=== PATIENT | female | born 1960 | race Caucasian/White ===

== ENCOUNTER 2022-07-31 14:22 | Outpatient (CLI) | payer OTHER, SELFPAY ==
--- NOTE | 2022-07-31 14:30 | MR_ITS ---
[address] [address] Phone:?[phone] Fax:?[phone] Referring Physician Information: Mariel Mendez [address] [facility] [address] Phone:?[phone] Fax:?[phone] Patient:?Alyssa Nunez D.O.B:?1960 Sex:?Female Phone:?[phone] [facility] MRN:?[id number] Exam Date:?07/31/2022 ? EXAM: MRI of the RIGHT SHOULDER, without contrast CLINICAL: Right shoulder pain. Evaluate rotator cuff. COMPARISONS: None available. TECHNICAL: MRI sequences of the right shoulder: Axials: PD, PDFS Coronals: PD, T2FS Sagittals: PDFS, T2 SEDATION: None. CONTRAST: None. FINDINGS: Rotator cuff: Supraspinatus/Infraspinatus: There is full-thickness tearing of the the distal supraspinatus tendon measuring approximately 1.7 cm in AP dimension with retraction of torn tendon fibers by approximately 1.9 cm as seen on coronal series 4 images 11-14. Mild tendinosis of the distal infraspinatus tendon. No significant fatty atrophy of the muscle bellies. Teres minor: No tendinosis, tear or atrophy. Subscapularis: Moderate tendinosis of the distal tendon without significant tendon tear. No significant fatty atrophy of the muscle belly. Bursae: Subacromial-subdeltoid: Increased fluid within the bursa likely secondary to full-thickness rotator cuff tendon tear. Subcoracoid: Prominent increased bursal fluid. Coracoacromial arch: Acromion morphology: Type II with subacromial spurring. No os acromiale. Acromiohumeral space: Mildly narrowed. Coracohumeral space: Within normal limits. Biceps tendon, long head: Mild tendinosis of the intra-articular tendon. No significant tendon tear or displacement. Mild fluid about the imaged proximal extra-articular tendon. Glenohumeral joint: Small joint effusion with mild synovitis. Articular cartilage: No significant chondral loss. Capsule: No convincing evidence of capsular thickening or injury. Labrum: There is attenuation/degenerative tearing involving the posterior superior labrum. Remainder of the glenoid labrum appears intact. No perilabral cyst identified. Bones: No suspicious marrow signal alteration, fracture or dislocation. Acromioclavicular joint: Moderate changes of arthrosis. No AC joint injury/widening. IMPRESSION: 1. Full-thickness tearing of the distal supraspinatus tendon with retraction of torn tendon fibers by approximately 1.9 cm. 2. Moderate subscapularis tendinosis with mild infraspinatus tendinosis 3. Subacromial spurring with mild narrowing of the acromiohumeral space. 4. Mild tendinosis of the intra-articular long head biceps tendon. 5. Attenuation/degenerative tearing involving the posterior superior labrum. 6. Moderate AC arthrosis. JCZ Electronically signed on 08/01/2022 8:07:00 AM by Alvin Easley D.O.
== END 2022-07-31 14:23 | disposition home or self-care (01) ==
LOC: MRI 14:22
PROVIDERS: PCP Family Medicine; Visit Provider Physician Assistant Surgical
DX: M25.511 Pain in right shoulder (principal); M75.101 Unspecified rotator cuff tear or rupture of right shoulder, not specified as traumatic; S43.491A Other sprain of right shoulder joint, initial encounter; M19.011 Primary osteoarthritis, right shoulder
CPT/HCPCS: 73221

== ENCOUNTER 2022-09-03 07:57 | Day surgery (SDC) | payer OTHER, SELFPAY ==
[2022-09-03] VITALS (13 sets, daily range): BP systolic 80–127; BP diastolic 49–78; PULSE 44–68; RESP 14–16; TEMP 36.1–36.6; O2SAT 94–99
[2022-09-03] MEDS: LACTATED RINGERS 1000 ML 1,000 ML 100 ML IV ×6 (08:30→13:11)
[2022-09-03] MEDS: SODIUM CHLORIDE 0.9 % (FLUSH) 10 ML SYRINGE IVF (08:36)
[2022-09-03] MEDS: MIDAZOLAM HCL 1 MG/ML inj IVP (10:22)
[2022-09-03] MEDS: fentaNYL 100 MCG/2 ML inj IVP (10:22)
--- NOTE | 2022-09-03 10:33 | SUR.PREOP ---
TIME?OUT:?1020, right shoulder PT/RN/MDA?VERIFICATION?OF?SURGICAL?SITE,?PROCEDURE,?AND?CONSENT OBTAINED?PRIOR?TO?INVASIVE?PROCEDURE.
--- NOTE | 2022-09-03 10:45 | P.NB_ITS ---
Nerve Block Nerve Block Time Seen by Provider: 10:28 Type of block requested by surgeon for post-operative analgesia: supraclavicular Side: right Time out performed: Yes Verification of patient name: Yes Verification of date of : Yes Site marking: site marked Name of person performing procedure: Adrien Continuous monitoring Was continuous monitoring of O2 sat, B/P, nurse monitoring, recorded every 15 minutes?: Yes Procedure Checklist: sterile prep, needles and gloves Ultrasound guided. Images saved: Yes Medications given in 5ml increments after negative aspiration: Ropivicaine %: 0.5 mL: 20 Needle gauge: 22 Decadron (mg): 10 Precedex (mcg): 25 Patient tolerated procedure well: Yes Block Charges Block Charge (with Pro Fee): Brachial Plexus Use of Ultrasound Machine for Block: Yes- US Guidance/pain block
[2022-09-03] MEDS: CEFAZOLIN 2 GM in 0.9 % SODIUM CHLORIDE Mini-bag 100 ML IVPB (11:31)
[2022-09-03] MEDS: EPINEPHrine 1 MG in SODIUM CHLORIDE IRRIG SOLUTION 3,000 ML 9003 MG IRRIGATION ×4 (11:50→12:29)
--- NOTE | 2022-09-03 12:40 | PM.ORPRC ---
Procedure Note Date of procedure: 09/03/22 Procedure: PREOPERATIVE DIAGNOSES: 1. Right shoulder rotator cuff tear. 2. Right shoulder AC degenerative joint disease 3. Right shoulder long head of biceps mild tendinopathy 4. Right shoulder subacromial impingement syndrome. POSTOPERATIVE DIAGNOSES: 1. Right shoulder rotator cuff tear. 2. Right shoulder AC degenerative joint disease 3. Right shoulder long head of biceps mild tendinopathy 4. Right shoulder subacromial impingement syndrome. NAME OF OPERATION: 1. Right shoulder arthroscopic rotator cuff repair (full-thickness, full breadth supraspinatus) 2. Right shoulder arthroscopic distal clavicle excision 3. Right shoulder arthroscopic bursectomy, subacromial decompression/partial acromioplasty. SURGEON: Konstantin Trejo MD MANUFACTURING AREA MANAGER: Demarcus Heath PA-C. Of note, a skilled therapeutic assistant was critical for this case to aide in patient positioning, suture manipulation, arm positioning, instrument positioning, and closure. ANESTHESIA: General plus preoperative supraclavicular block. EBL: Less than 50 mL IMPLANTS: Arthrex 2.6 mm all suture FiberTak RC 0 (x1); 4.5 mm BioComposite SwiveLock suture anchor (x1); 5.5 mm BioComposite SwiveLock suture anchor (x2) COMPLICATIONS: None evident INDICATIONS: The patient is a pleasant, 62 year female who has experienced right shoulder pain that has been increasing in recent time. Physical exam and imaging were consistent with a rotator cuff tear. Given their findings, as well as the weakness and pain, and inadequate response to nonoperative management, recommendation was made for surgery. FINDINGS: Exam under anesthesia revealed stable shoulder with excellent range of motion. The diagnostic arthroscopy revealed healthy chondral surfaces of the glenohumeral joint. The Subscapularis tendon was intact and with a healthy attachment. The long head of the biceps tendon was intact without significant tearing or hemorrhagic tissue. The superior rotator cuff tendon was found to be torn full-thickness through the entire breadth of the supraspinatus with retraction to the mid humeral head. The labrum was overall relatively healthy with minimal fraying. No loose bodies were identified within the pouch or subscapularis recess. PROCEDURE: Following a thorough discussion of risks, benefits, and alternatives, consent was obtained and the right shoulder was marked. The patient was brought to the operating room and placed supine on the operating table. Induction of anesthesia was completed after preoperative supraclavicular block was administered in preop holding. Appropriate time out was performed identifying proper patient, site, and procedure. 1 g IV Ancef was administered within 1 hour of incision preoperatively. The right upper extremity was prepped and draped in the appropriate sterile fashion using ChloraPrep prep. This was after the patient was positioned in the beach chair with their head in neutral alignment and all bony prominences well padded. The shoulder was insufflated with 20mL of normal saline via an 18g spinal needle from a posterior approach. An 11 blade skin incision allowed a blunt trochar to be inserted and diagnostic arthroscopy to be performed with the findings as noted above. An anterior portal was established with an outside in technique. This allowed the probe to be inserted and confirm the diagnostic arthroscopic findings. The shaver was then inserted and allowed debridement of supraspinatus insertion site on the greater tuberosity Following this, the upper border subscapularis was probed and found to be stable. Thereafter, the subacromial space was entered. Here, a complete bursectomy and partial acromioplasty/subacromial decompression was performed with a combination of radiofrequency ablator, the shaver, and a 5.5 mm bur. Additionally, distal clavicle excision was performed with the bur. 8 mm of distal clavicle was resected based on the with of our bur. Further inspection of the supraspinatus and infraspinatus rotator cuff was performed. This identified the tear as noted above. The margins of the tear were debrided, and the greater tuberosity was debrided with a combination of the apollo cautery, shaver, and bur on reverse setting. After gentle decortication, a speed bridge configuration with a medial arely was engaged. 2 medial anchors were placed and the sutures were passed with a fiber link. The eyelet suture tails were then retrieved and tied and cinched down for the medial arely purpose. A tail from each of the medial row anchor FiberTapes were then brought to a lateral row anchor along with 1 of the tails from the medial arely. Excellent reapproximation of the tissue to the greater tuberosity was achieved with broad footprint compression. Prior to anchor services delivery driver removal, the eyelet sutures were tugged on for each anchor and found that the anchor had excellent stability within the bone. The shoulder was placed through range of motion and found to be stable. The rotator cuff was re-probed and found to be stable. Instruments were removed. Excess fluid was drained, closure performed with 4-0 Monocryl and Steri-Strips. Dressings were applied. Sling was applied. The patient was awoken from anesthesia and transferred to the PACU in stable condition. A skilled therapeutic assistant was critical for this case to aid in patient positioning, limb positioning, skill to manipulate arthroscopic instruments and camera, suture management, patient safety, and closure. PLAN: 1. Elbow, forearm, wrist and digit range of motion as tolerated. 2. Encouraged ice. 3. Percocet for pain as needed. 4. Sling at all times except for ROM and showering. 5. Follow up with PA visit in 1-2 weeks for wound check. Initiate physical therapy following that visit for passive range of motion to begin at week 2-3. Initiate active assisted range of motion at 4 weeks. May do pendulums now.
--- NOTE | 2022-09-03 13:02 | W.ANESCHARGE ---
Anesthesia Charges Start Date/Time Anesthesia Start Date: 09/03/22 Anesthesia Start Time: 11:14 Stop Date/Time Anesthesia Stop Date: 09/03/22 Anesthesia Stop Time: 13:00 Summary Emergency: No
--- NOTE | 2022-09-03 13:30 | W.ANESCHARGE ---
Anesthesia Charges Start Date/Time Anesthesia Start Date: 09/03/22 Anesthesia Start Time: 11:14 Stop Date/Time Anesthesia Stop Date: 09/03/22 Anesthesia Stop Time: 13:00 Summary Emergency: No
== END 2022-09-03 14:41 | disposition home or self-care (01) ==
PROVIDERS: Visit Provider Orthopaedic Surgery Sports Medicine
PROC: (CPT 29805; principal; 2022-09-03 10:15)
DX: M75.121 Complete rotator cuff tear or rupture of right shoulder, not specified as traumatic (principal); M19.011 Primary osteoarthritis, right shoulder; M75.21 Bicipital tendinitis, right shoulder; M75.41 Impingement syndrome of right shoulder; M25.511 Pain in right shoulder
CPT/HCPCS: 29827; 29826; 29824; 01630; 64415; 76942; C1713; J0171; J0330; J0690; J1100; J2250; J2370; J2405; J2704; J2795; J3010; J7120

== ENCOUNTER 2023-01-15 10:00 | Outpatient (RCR) | payer OTHER, SELFPAY | END 2023-01-15 14:01 | disposition home or self-care (01) | PROVIDERS: Visit Provider Physician Assistant Surgical | DX: M25.511 Pain in right shoulder (principal); M25.521 Pain in right elbow; M25.611 Stiffness of right shoulder, not elsewhere classified; Z98.890 Other specified postprocedural states; Z51.89 Encounter for other specified aftercare | CPT/HCPCS: 97110; 97140; 97162 ==

== ENCOUNTER 2023-04-05 09:27 | Outpatient (CLI) | payer OTHER, SELFPAY | END 2023-04-05 09:28 | disposition home or self-care (01) | PROVIDERS: Visit Provider Internal Medicine | DX: Z12.11 Encounter for screening for malignant neoplasm of colon (principal); Z80.0 Family history of malignant neoplasm of digestive organs | CPT/HCPCS: 45378; J2250; J3010 ==

== ENCOUNTER 2023-07-01 17:16 | Outpatient (CLI) | payer OTHER, SELFPAY ==
--- NOTE | 2023-07-01 17:30 | CRLHL7_ITS ---
For Patients: As a result of the Century Cures Act, medical imaging exams and procedure reports are released immediately into your electronic medical record. You may view this report before your referring provider. If you have questions, please contact your health care provider. BILATERAL BREAST MRI WITHOUT 07/01/2023 CLINICAL HISTORY: Implant evaluation, implant integrity. History of treated RIGHT breast cancer. COMPARISON STUDIES: None available. CONTRAST: None. TECHNIQUE: The patient was positioned prone and scanned using a breast coil. Several imaging sequences of both breasts were obtained using 1-1.5 mm thick slices with no gap including T2-weighted and silicone selective sequences in axial and sagittal planes. FINDINGS: There is a prepectoral silicone implant on the RIGHT. There are post-surgical changes of RIGHT mastectomy. There is a subpectoral silicone implant on the LEFT. The implants are intact. No findings to suggest intra- or extracapsular rupture. IMPRESSIONS AND RECOMMENDATIONS: No findings to suggest intracapsular or extracapsular rupture. Clinical follow-up is recommended. BI-RADS: ACR not applicable. Christin Jack M.D. Body/Breast Radiologist [email or web address] RAINA/Dictated by: Christin Jack MD @ 07/05/2023 5:40:00 PM (Electronically Signed)
== END 2023-07-01 17:17 | disposition home or self-care (01) ==
LOC: MRI 17:19
DX: Z85.3 Personal history of malignant neoplasm of breast (principal); Z90.13 Acquired absence of bilateral breasts and nipples
CPT/HCPCS: 77047